=== PATIENT | female | born 1975 | race American Indian/Alaskan Native ===

== ENCOUNTER 2020-12-08 18:53 | Emergency (ER) | payer MEDICARE ==
[2020-12-08] MEDS ORDERED: predniSONE 50 MG TAB PO ONE (19:57)
--- NOTE | 2020-12-08 19:59 | Emergency Department Report ---
ED Asthma HPI - General Chief Complaint: Adult Asthma Stated Complaint: ASTHMA PUI?: No Time Seen by Provider: 12/08/20 19:29 Source: patient Mode of arrival: Ambulatory Limitations: No Limitations - History of Present Illness Initial Comments: 45-year-old female with a past medical history of hypertension, depression and asthma presents to the ER today with complaints of asthma attack. Patient states that her symptoms started 2 days ago. She states that she has been having intermittent dry cough, intermittent wheezing and shortness of breath. She has been using her MDI "a lot" in the past 2 days without much relief of her symptoms. She states that she did have a cold after being exposed to her roommate who had a cold about a week ago but majority of her cold symptoms have resolved. She states that she does not smoke but she also has been around her boyfriend who does smoke. She denies any fever or chills. She states that the last time she was admitted for asthma was about 6 months ago. She did get the COVID-19 vaccine and received the last dose of the mother and 2 weeks ago. She reports no additional symptoms at this time. MD Complaint: "asthma attack" -: Gradual, days(s) (2) - Related Data Previous Rx's Medication Instructions Recorded Last Taken Type ALBUTEROL NEB's [Proventil 0.083% 2.5 mg IH TID PRN #30 neb 12/08/20 Unknown Rx NEBS] Albuterol Mdi (or & Nicu Only) 2 puff IH QID PRN #8.5 gram 12/08/20 Unknown Rx [ProAir HFA Inhaler] predniSONE [Deltasone] 50 mg PO QDAY #5 tab 12/08/20 Unknown Rx Allergies Allergy/AdvReac Type Severity Reaction Status Date / Time acetaminophen [From Lortab] Allergy Unknown Verified 12/08/20 19:19 hydrocodone [From Lortab] Allergy Unknown Verified 12/08/20 19:19 ED Review of Systems ROS: Stated complaint: ASTHMA Other details as noted in HPI Comment: All other systems reviewed and negative Respiratory: cough, shortness of breath, wheezing Cardiovascular: denies: chest pain, palpitations Gastrointestinal: denies: abdominal pain, nausea, diarrhea, constipation, hematemesis, melena, hematochezia Genitourinary: denies: urgency, dysuria, frequency, hematuria, discharge, abnormal menses, dyspareunia Musculoskeletal: denies: back pain, joint swelling, arthralgia, myalgia Skin: denies: rash, lesions, change in color, change in hair/nails, pruritus Neurological: denies: headache, weakness, paresthesias, abnormal gait, vertigo Psychiatric: denies: anxiety, depression, auditory hallucinations, visual hallucinations, homicidal thoughts ED Past Medical Hx - Past Medical History Previous Medical History?: Yes Hx Hypertension: Yes Hx Asthma: Yes - Surgical History Past Surgical History?: Yes Hx Cholecystectomy: Yes Additional Surgical History: c section colostomy and colostomy reversal - Medications Home Medications: Home Medications Medication Instructions Recorded Confirmed Last Taken Type ALBUTEROL NEB's [Proventil 0.083% 2.5 mg IH TID PRN #30 neb 12/08/20 Unknown Rx NEBS] Albuterol Mdi (or & Nicu Only) 2 puff IH QID PRN #8.5 gram 12/08/20 Unknown Rx [ProAir HFA Inhaler] predniSONE [Deltasone] 50 mg PO QDAY #5 tab 12/08/20 Unknown Rx ED Physical Exam - General Limitations: No Limitations General appearance: alert, in no apparent distress - Head Head exam: Present: atraumatic, normocephalic, normal inspection - Eye Eye exam: Present: normal appearance, PERRL, EOMI Pupils: Present: normal accommodation - ENT ENT exam: Present: normal exam, mucous membranes moist, TM's normal bilaterally - Neck Neck exam: Present: normal inspection, full ROM - Respiratory Respiratory exam: Present: normal lung sounds bilaterally, decreased breath sounds (mild ). Absent: respiratory distress, wheezes, rales, rhonchi, stridor - Cardiovascular Cardiovascular Exam: Present: regular rate, normal rhythm, normal heart sounds - Neurological Exam Neurological exam: Present: alert, oriented X3, CN II-XII intact, normal gait - Psychiatric Psychiatric exam: Present: normal affect, normal mood - Skin Skin exam: Present: intact ED Course Vital Signs 12/08/20 12/08/20 19:14 20:32 Temperature 98.8 F Pulse Rate 82 Pulse Rate [ 92 H Anterior] Respiratory 16 Rate Respiratory 18 Rate [Anterior] Blood Pressure 165/95 O2 Sat by Pulse 99 Oximetry ED Medical Decision Making - Medical Decision Making Pt feels better after duoneb tx repeat Chest exam CTA Pt not in any respiratory distress, she is not toxic or ill appearing and has normal gait VS are stable Pt will be d/c home with rx albuterol MDI and albuterol nebulizer solutions and prednisone. Recommend close follow-up with PCP. She understands that if her symptoms worsens to return to the ER. Patient expressed understanding of all instructions and agree with plan. Patient was stable at time of discharge. Critical care attestation.: If time is entered above; I have spent that time in minutes in the direct care of this critically ill patient, excluding procedure time. ED Disposition Clinical Impression: Asthma attack Disposition: HOME / SELF CARE / HOMELESS Is pt being admited?: No Does the pt Need Aspirin: No Condition: Stable Instructions: Asthma, Adult Additional Instructions: Use the albuterol MDI or the Albuterol nebulizer every 4hrs as needed as prescribed. Take the prednisone as prescribed. Follow-up closely with your PCP. Return to the ER if your symptoms changes or worsens in any way. Prescriptions: predniSONE [Deltasone] 50 mg PO QDAY #5 tab Albuterol Mdi (or & Nicu Only) [ProAir HFA Inhaler] 2 puff IH QID PRN #8.5 gram PRN Reason: Shortness Of Breath ALBUTEROL NEB's [Proventil 0.083% NEBS] 2.5 mg IH TID PRN #30 neb PRN Reason: Wheezing Referrals: PRIMARY CAREMD [Primary Care Provider] - 3-5 Days HEATHER BANSAL MD [Staff Physician] - 3-5 Days Time of Disposition: 21:37
[2020-12-08] MEDS: IPRATROPIUM/ALBUTEROL SULFATE 3 ML AMPUL.NEB IH ONE ×2 (20:23→20:30)
[2020-12-08 21:46] VITALS: BP 167/95
== END 2020-12-08 21:44 | disposition home or self-care (01) ==
LOC: ED 18:53
DX: J45.909 Unspecified asthma, uncomplicated (principal); I10 Essential (primary) hypertension; Z90.49 Acquired absence of other specified parts of digestive tract; Z88.6 Allergy status to analgesic agent; Z88.5 Allergy status to narcotic agent; Z79.899 Other long term (current) drug therapy
CPT/HCPCS: 94640; 99282; J7512; 94644